=== PATIENT | female | born 1945 | race Caucasian/White ===

== ENCOUNTER 2016-05-01 13:41 | Emergency (ER) | payer MEDICARE, OTHER ==
--- NOTE | ~2016-05-01 | CT4 ---
[facility]. [facility] A Service of [facility] RADIOLOGY TEXT RESULTS PATIENT: SANJUANA GUTIERREZ LOCATION: SED : 41 UNIT #: [id number] AGE: [address]: Castillo Choudhary MD SEX: F ORDER DR: [id number] [place] [id number] E MR#: [id number] Acc #: [id number] NAME: SANJUANA GUTIERREZ : 1945 SEX: F STUDY DATE/TIME: 05/01/2016 14:14 UNIT: SED ROOM: STUDY DESCRIPTION: CT Abd and Pelv Wo Cont Attending Physician: Castillo Choudhary M.D. Ordering Physician: Castillo Choudhary M.D. Primary Care Physician: José Miguel Rollins M.D. MEDICAL IMAGING REPORT This report is preliminary unless electronic signature is present. EXAM CT of the abdomen and pelvis without contrast media DATE OF EXAMINATION 05/01/2016 HISTORY Lower abdominal pain since this morning with vomiting. COMPARISON STUDIES Comparison is a contrast-enhanced scan from 06/28/2014. TECHNIQUE Transaxial imaging of the abdomen and pelvis was performed without contrast media. This CT exam was performed with one or more of the following radiation dose reduction techniques: automatic exposure control, adjustment of mA and/or kV according to patient size, and iterative reconstruction. FINDINGS Scans through the lung bases show underlying emphysema and fibrosis. Multiple tiny calcifications are present throughout the liver. The gallbladder in this patient appears unremarkable. The spleen is of normal size. There is a small to moderate-sized hiatal hernia. Adrenal glands are normal. There is a nonobstructing 2 mm lower pole stone within the right kidney. No other stones are identified. There is no evidence of hydronephrosis or hydroureter on the right or left. Both ureters are well seen to the bladder and appear normal. The appendix in this patient is normal. Patient does have some colon wall thickening particularly in the transverse colon and splenic flexure. There is mild adjacent edema. This involves the descending and sigmoid colons as well. There is no evidence of obstruction. There is diverticulosis but no evidence of STS. [facility] A Service of [facility] RADIOLOGY TEXT RESULTS PATIENT: SANJUANA GUTIERREZ LOCATION: SED : 43 UNIT #: [id number] AGE: [address]: Castillo Choudhary MD SEX: F ORDER DR: diverticulitis. Uterus appears unremarkable. There are no adnexal masses or fluid collections. CONCLUSION 1. Diffuse colon wall thickening involving the transverse colon, splenic flexure, descending colon, and sigmoid consistent with diffuse colitis. 2. Colonic diverticulosis without diverticulitis. 3. Tiny nonobstructing right lower pole renal stone. 4. Not mentioned above multilevel degenerative disc disease. Dictated by... Mat Talbot M.D. THIS IS AN ELECTRONICALLY VERIFIED REPORT Mat Talbot M.D. at 05/02/2016 2:53 PM RONNY/yolette TD: 05/01/2016 18:34 JOB #: [id number] MEDICAL IMAGING REPORT
[~2016-05-01 13:41] MED LIST: ALLEGRA PO; ASACOL HD800 MG PO; BENTYL20 MG PO; CARTIA PO; CARTIA XT PO; COLACE PO; COQ-10200 MG PO; DILTIAZEM 24HR180 M1 PO; EFFEXOR-XR150 MG PO; ESTRACE VAG; ESTRACE42.5 GM VG; FIBERCON625 MG PO; FLAGYL PO; FLONASE 0.05% N16 G1; LEVAQUIN PO; LORATADINE PO; LORTAB 10-5001 EACH PO; MEDROL PO; METOPROLOL SUCC50 MG PO; MIRALAX17 GM PO; MULTI VITAMIN1 EACH PO; NASONEX17 GM; NEXIUM PO; PAXIL PO; PRAVACHOL PO; PREVACID PO; STOOL SOFTENER100 M1 PO; TAGAMET PO; TOLTERODINE TART4 MG PO; TOPROL XL PO; VISTARIL PO; VITAMIN D1000 UNI1 PO; VITAMIN D250000 UNIT PO; WALGREENS PHARMACY; ZANTAC PO; ZEGERID 40 MG C1 CAP PO; ZOCOR PO; ZYRTEC PO; ZYRTEC10 M1 PO
[2016-05-01 14:03] LABS: BASOPHIL% 0.2 % (0-2.5); EOSINOPHIL# 0.1 X10e3 (0-0.7); EOSINOPHIL% 0.4 % (0.0-7.0); HEMATOCRIT 43.8 % (35.0-45.0); HEMOGLOBIN 14.3 gm/dL (12.0-16.0); LYMPHOCYTE# 1.8 X10e3 (1.0-3.5); LYMPHOCYTE% 11.9 % (17.0-45.0); MEAN CELL VOLUME 95.2 FL (83-96); MEAN CORPUSCULAR HEMOGLOBIN 31.1 PG (28-34); MEAN CORPUSCULAR HGB CONC 32.7 g/dL (30-36); MEAN PLATELET VOLUME 7.1 FL (6.5-11.5); MONOCYTE# 1.5 X10e3 (0-1.0); MONOCYTE% 10.3 % (3.0-12.0); NEUTROPHIL# 11.5 X10e3 (1.5-7.1); NEUTROPHIL% 77.2 % (40-75); PLATELET COUNT 394 X10e3 (140-420); RED CELL DISTRIBUTION WIDTH 14.6 % (11.0-15.5); WHITE BLOOD COUNT 14.9 X10e3 (4.0-10.5)
[2016-05-01 14:22] LABS: ALBUMIN SERUM 4.2 g/dL (3.5-5.0); BILIRUBIN, DIRECT 0.1 mg/dL (0.0-0.2); BILIRUBIN,INDIRECT 0.7 mg/dL (0.0-0.9); BILIRUBIN,TOTAL 0.8 mg/dL (0.2-2.0); CALCIUM SERUM 8.7 mg/dL (8.4-10.2); DIFF IND NO; GLOM FILT RATE Estimated 57.8 mL/min (>60); POTASSIUM 3.7 mmol/L (3.5-5.1); PROTEIN TOTAL SERUM 7.3 g/dL (6.0-8.3)
== END 2016-05-01 14:58 | disposition home or self-care (01) ==
LOC: SED 13:41
PROVIDERS: Emergency Medicine
DX: K52.9 Noninfective gastroenteritis and colitis, unspecified (principal); Z88.8 Allergy status to other drugs, medicaments and biological substances; Z79.899 Other long term (current) drug therapy
CPT/HCPCS: 36415; 74176; 80048; 80076; 82150; 83690; 85025; 96361; 96372; 96374; 99284; J0500; J2405